=== PATIENT | female | born 1980 | race Caucasian/White ===

== ENCOUNTER 2018-10-25 06:23 | Emergency (ER) | payer SELFPAY ==
[~2018-10-25] VITALS: Ht 175.3 cm; Wt 65.0 kg
[2018-10-25 06:26] VITALS: BP 137/86
--- NOTE | 2018-10-25 06:55 | NUR ---
RECEIVED REPORT FROM TOMY OTERO, PLAN OF CARE DISCUSSED.
[2018-10-25] MEDS ORDERED: LIDOCAINE-MPF 1%, 5ML ONE (06:58)
[2018-10-25] MEDS ORDERED: SULFAMETH./TRIMETHOPRIM DS 800MG/160MG TABLET ONE (06:58)
[2018-10-25] MEDS ORDERED: LIDOCAINE 1%-EPI 1:100K, 20ML SQ ONE (07:00)
[2018-10-25] MEDS ORDERED: SULFAMETH./TRIMETHOPRIM DS 800MG/160MG TABLET PO ONE (07:00)
--- NOTE | 2018-10-25 07:11 | NUR ---
MEDICATED PER ORDERS. PT STATES PAIN IS 0/10. VERBALZIED NO NEEDS AT THIS TIME. I&D TRAY SET UP
--- NOTE | 2018-10-25 08:20 | NUR ---
Patient/Caregiver given discharge instructions and they have confirmed that they understand the instructions. Patient ambulatory with steady gait.
== END 2018-10-25 08:22 | disposition home or self-care (01) ==
LOC: ED 08:17
DX: L02.413 Cutaneous abscess of right upper limb (principal); F15.10 Other stimulant abuse, uncomplicated
CPT/HCPCS: 10060; 99283